=== PATIENT | male | born 1965 | race African-American/Black ===

== ENCOUNTER 2016-06-29 21:59 | Emergency (ER) | payer MEDICAID ==
[~2016-06-29] VITALS: Ht 170.2 cm; Wt 73.0 kg
[~2016-06-29 21:59] MED LIST: LISI2.5T47 PO; OMEP20CA10 PO
[2016-06-30 07:41] VITALS: BP 126/80
== END 2016-06-30 07:53 | disposition home or self-care (01) ==
LOC: ER 22:01
DX: F10.10 Alcohol abuse, uncomplicated (principal); F32.9 Major depressive disorder, single episode, unspecified; K21.9 Gastro-esophageal reflux disease without esophagitis; I10 Essential (primary) hypertension; F17.210 Nicotine dependence, cigarettes, uncomplicated
CPT/HCPCS: 36415; 99283; G0482; Z7610

== ENCOUNTER 2016-06-30 18:34 | Emergency (ER) | payer MEDICAID ==
[~2016-06-30] VITALS: Ht 175.3 cm; Wt 78.0 kg
[2016-07-01] MEDS ORDERED: LORAZEPAM 1MG TABLET PO NR (02:30)
[2016-07-01 03:27] LABS: EOSINOPHILS % 1.2 % (0.0-5.0); HEMATOCRIT. 36.5 % (42.0-52.0); HEMOGLOBIN. 12.6 g/dL (14.0-18.0); LYMPHOCYTES % 58.9 % (20.0-50.0); MEAN CORPUSCULAR HEMOGLOBIN 34.2 pg (28.0-32.0); MEAN CORPUSCULAR HGB CONC 34.6 g/dL (31.0-37.0); MEAN CORPUSCULAR VOLUME 98.9 fL (80.0-94.0); MONOCYTES % 11.1 % (2.0-8.0); NEUTROPHILS % 27.8 % (40.0-76.0); PLATELET 199 x1000/uL (130-400); RED BLOOD CELL COUNT 3.69 mill/uL (4.7-6.1); RED CELL DISTRIBUTION WIDTH 17.4 % (11.6-14.6); WHITE BLOOD COUNT 3.2 x1000/uL (4.5-11.0)
[2016-07-01 03:36] LABS: ALANINE AMINOTRANSFERASE 54 IU/L (13-61); ALBUMIN 3.5 g/dL (3.4-5.0); ANION GAP 15; CALCIUM 8.7 mg/dL (8.5-10.1); CARBON DIOXIDE 28 mEq/L (21-32); CHLORIDE 108 mEq/L (98-107); INDEX HEMOLYSI 2 (1-3); INDEX ICTERIC 1 (1-4); INDEX LIPEMIC 1 (1-3); UREA NITROGEN BLOOD 8 mg/dL (7-21); eGFR > 60 mL/min (>60)
[2016-07-01 04:28] LABS: CLARITY URINE CLEAR (CLEAR); COLOR URINE YELLOW (YELLOW); GLUCOSE URINE NEGATIVE (NEGATIVE); KETONES URINE NEGATIVE (NEGATIVE); LEUKOCYTE ESTERASE URINE TRACE (NEGATIVE); NITRITE URINE NEGATIVE (NEGATIVE); OCCULT BLOOD URINE NEGATIVE (NEGATIVE); PROTEIN URINE NEGATIVE (NEGATIVE); SPECIFIC GRAVITY URINE 1.008 (1.005-1.030); UROBILINOGEN URINE 0.2 E.U./dL (0.2-1.0)
[2016-07-01 04:41] LABS: *AMPHETAMINES SCREEN URINE NEGATIVE (NEGATIVE); *BARBITURATES SCREEN URINE NEGATIVE (NEGATIVE); *BENZODIAZEPINES SCREEN URINE PRESUMTIVE POSITIVE (NEGATIVE); *COCAINE SCREEN URINE NEGATIVE (NEGATIVE); CANNABINOID URINE SCREEN NEGATIVE (NEGATIVE); ECSTASY MDMA SCREEN URINE NEGATIVE (NEGATIVE); METHADONE URINE SCREEN NEGATIVE (NEGATIVE); OPIATES URINE SCREEN NEGATIVE (NEGATIVE); PHENCYCLIDINE URINE SCREEN NEGATIVE (NEGATIVE)
[2016-07-01 04:50] LABS: SQUAMOUS EPITHELIAL CELL URINE FEW /lpf (RARE/1+)
[2016-07-01 04:51] LABS: BACTERIA URINE NONE SEEN; RBC URINE 0-2 /hpf (0-2); WBC URINE 0-2 /hpf (0-2)
[2016-07-01 14:10] VITALS: BP 125/75
== END 2016-07-01 16:00 | disposition home or self-care (01) ==
LOC: ER 18:35
DX: F10.10 Alcohol abuse, uncomplicated (principal); F41.9 Anxiety disorder, unspecified; F32.9 Major depressive disorder, single episode, unspecified; K21.9 Gastro-esophageal reflux disease without esophagitis; I10 Essential (primary) hypertension; Z79.899 Other long term (current) drug therapy; Y90.8 Blood alcohol level of 240 mg/100 ml or more
CPT/HCPCS: 36415; 80053; 80305; 81001; 85025; 99284; G0482

== ENCOUNTER 2016-07-01 23:33 | Emergency (ER) | payer MEDICAID ==
[~2016-07-01] VITALS: Ht 177.8 cm; Wt 84.0 kg
[2016-07-02 01:01] VITALS: BP 129/95
== END 2016-07-02 02:15 | disposition left against medical advice (07) ==
LOC: ER 23:36
DX: F10.129 Alcohol abuse with intoxication, unspecified (principal); Z53.21 Procedure and treatment not carried out due to patient leaving prior to being seen by health care provider

== ENCOUNTER 2016-07-02 02:48 | Emergency (ER) | payer MEDICAID ==
[~2016-07-02] VITALS: Ht 170.2 cm; Wt 95.0 kg
[2016-07-02 02:51] VITALS: BP 140/100
[2016-07-02] MEDS ORDERED: ONDANSETRON 4MG ODT PO STA (03:17)
[2016-07-02] MEDS ORDERED: VISCOUS LIDOCAINE 2% 15 ML UDC PO STA (03:17)
[2016-07-02] MEDS ORDERED: MAGNESIUM/ALUMINUM HYDROXIDE/SIMETHICONE 30ML UDC PO STA (03:17)
[2016-07-02 03:42] LABS: BASOPHILS % 0.9 % (0.0-2.0); EOSINOPHILS % 1.1 % (0.0-5.0); HEMATOCRIT. 36.7 % (42.0-52.0); HEMOGLOBIN. 12.7 g/dL (14.0-18.0); LYMPHOCYTES % 55.4 % (20.0-50.0); MEAN CORPUSCULAR HEMOGLOBIN 34.1 pg (28.0-32.0); MEAN CORPUSCULAR HGB CONC 34.8 g/dL (31.0-37.0); MEAN PLATELET VOLUME 7.5 fl (7.4-10.4); MONOCYTES % 10.5 % (2.0-8.0); NEUTROPHILS % 32.1 % (40.0-76.0); PLATELET 190 x1000/uL (130-400); RED BLOOD CELL COUNT 3.74 mill/uL (4.7-6.1); RED CELL DISTRIBUTION WIDTH 16.5 % (11.6-14.6); WHITE BLOOD COUNT 3.8 x1000/uL (4.5-11.0)
[2016-07-02 04:03] LABS: ALANINE AMINOTRANSFERASE 56 IU/L (13-61); ALBUMIN 3.8 g/dL (3.4-5.0); CARBON DIOXIDE 24 mEq/L (21-32); INDEX HEMOLYSI 1 (1-3); INDEX ICTERIC 1 (1-4); INDEX LIPEMIC 1 (1-3); LIPASE 933 IU/L (73-393); UREA NITROGEN BLOOD 6 mg/dL (7-21); eGFR > 60 mL/min (>60)
[2016-07-02 04:11] LABS: ANION GAP 16; CHLORIDE 109 mEq/L (98-107)
[2016-07-02 04:13] LABS: ETHANOL BLOOD 347 mg/dL
== END 2016-07-02 04:10 | disposition left against medical advice (07) ==
LOC: ER 02:49
DX: K85.90 Acute pancreatitis without necrosis or infection, unspecified (principal); F10.129 Alcohol abuse with intoxication, unspecified; I10 Essential (primary) hypertension; F17.210 Nicotine dependence, cigarettes, uncomplicated; Z79.899 Other long term (current) drug therapy; Z83.3 Family history of diabetes mellitus
CPT/HCPCS: 36415; 80053; 83690; 85025; 99284; G0482; Q0162

== ENCOUNTER 2018-05-29 20:06 | Emergency (ER) | payer MEDICAID ==
[~2018-05-29] VITALS: Ht 180.3 cm; Wt 87.0 kg
[2018-05-29 20:51] VITALS: BP 111/78
== END 2018-05-30 02:00 | disposition left against medical advice (07) ==
LOC: ER 20:06
DX: Z53.21 Procedure and treatment not carried out due to patient leaving prior to being seen by health care provider (principal)

== ENCOUNTER 2018-12-09 11:10 | Emergency (ER) | payer MEDICAID ==
[~2018-12-09] VITALS: Ht 177.8 cm; Wt 88.0 kg
[~2018-12-09 11:10] MED LIST changes: -OMEP20CA10 PO; +OMEP20CA5 PO
[2018-12-09 11:16] VITALS: BP 106/76
[2018-12-09] MEDS ORDERED: IBUPROFEN 600MG TABLET PO NR (11:45)
== END 2018-12-09 12:24 | disposition home or self-care (01) ==
LOC: ER 11:10
DX: M25.571 Pain in right ankle and joints of right foot (principal)
CPT/HCPCS: 73610; 99283